=== PATIENT | male | born 1995 | race Caucasian/White ===

== ENCOUNTER 2016-08-08 12:45 | Emergency (ER) | payer OTHER ==
[~2016-08-08] VITALS: Ht 172.7 cm; Wt 79.9 kg
[~2016-08-08 12:45] MED LIST: ATV/1 PO; LISD40CA PO
[2016-08-08 12:49] VITALS: BP 127/72; PULSE 92; TEMP 37; O2SAT 100; Ht 172.7 cm; Wt 79.9 kg
[2016-08-08] MEDS ORDERED: KETOROLAC TROMETHAMINE 30 MG/ML VIAL IV STA (13:04)
[2016-08-08] MEDS ORDERED: SODIUM CHLORIDE 0.9% 1000ML 1,000 ML IV STA (13:04)
[2016-08-08] MEDS ORDERED: AMPH10CA3 PO (13:11)
[2016-08-08] MEDS ORDERED: DEXAMETHASONE SOD INJ 10 MG/ML VIAL IV ONE (13:15)
[2016-08-08 13:38] LABS: BASO % 0.3 %; BASO ABS # 0.02 K/uL (0-0.2); COMPLETE YES; EOS % 0.8 %; HEMATOCRIT 41.9 % (42-52); IG% 0.1 %; LYMPH % 12.9 %; LYMPH ABS # 0.98 K/uL (1.2-3.4); MEAN PLATELET VOLUME 10.4 fL (7.4-10.4); MONO % 6.9 %; PLATELET COUNT 133 K/uL (130-400); RED BLOOD COUNT 4.87 M/uL (4.7-6.1); WHITE BLOOD COUNT 7.57 K/uL (4.8-10.8)
[2016-08-08] MEDS ORDERED: AMPICILLIN/SULBACTAM SOD INJ 3,000 MG in SODIUM CHLORIDE 0.9% 100ML 100 ML IV ONE (13:45)
[2016-08-08 13:59] LABS: BUN/CREATININE RATIO 8.8 (10-20); CALCIUM 8.8 mg/dl (8.5-10.1); CREATININE 1.1 mg/dl (0.60-1.40); POTASSIUM 3.9 mmol/L (3.5-5.1)
--- NOTE | 2016-08-08 14:05 | EMERGENCY ROOM VISIT NOTE ---
ED Visit Note First contact with patient: 12:58 The patient was seen and examined with Laura Locke PA-C. I agree with the history, physical and findings. Please see the note for disposition and details.
--- NOTE | 2016-08-08 14:15 | EMERGENCY ROOM VISIT NOTE ---
History First contact with patient: 12:58 Chief Complaint: FLU LIKE SX Stated Complaint: SWOLLEN GLANDS History of Present Illness The patient is a 20 year old male who presents to the Emergency Room with complaints of sore throat for the past 4 days. The patient also states that he has had a headache and low-grade fever although he does not have a thermometer to take check his temperature. He also has felt slightly achy. The patient states it hurts to open his mouth. He went to urgent care the last 2 days for his symptoms. He had multiple strep test which were all negative. The patient states he can barely swallow anything at this point. He also states he has a very large swollen lymph node on the left side. He has had mono in the past. He is a college student. Review of Systems 10 system review was performed and was negative unless stated otherwise history of present illness. Past Medical/Surgical History Medical Problems: (1) No pertinent past medical history Family History Patient reports no known family medical history. Social History Smoking Status: Never Smoker Alcohol Use: occasionally Drug Use: none Marital Status: single Housing Status: lives with roommate Occupation Status: [employer] student Current/Historical Medications Scheduled Amphetamine-Dextroamphetamine 10MG (Adderall Xr 10MG), 10 MG PO DAILY Scheduled PRN Lorazepam (Ativan), 1 MG PO UD PRN for Anxiety Allergies Coded Allergies: No Known Allergies (Unverified , 08/08/16) Physical Exam Vital Signs Date Time Temp Pulse Resp B/P Pulse Ox O2 Delivery O2 Flow Rate FiO2 08/08/16 12:49 37.0 92 18 127/72 100 Room Air Physical Exam PHYSICAL EXAM: Vital Signs were reviewed: Temperature 37.0, blood pressure 127/ 72, pulse 92, respiratory rate 18 Reviewed Nurse's notes and agree. Oxygen saturation is 100 % on room air which is normal . GENERAL: 20-year-old male appears uncomfortable due to his sore throat. MENTAL STATUS: Alert, oriented, coherent. EARS: Right canal with some cerumen unable to visualize TM. Left TM with good light reflex. NOSE: Nasal mucosa with moderate erythema engorgement. PHARYNX: Diffuse erythema, left tonsil with edema along with the soft palate on the left side consistent with peritonsillar abscess. No visible drainage is noted. Airway is adequate.. Airway is adequate. NECK: Supple, left anterior cervical lymphadenopathy is noted which is tender to palpation. No posterior nodes noted LUNGS: Clear to auscultation without wheezes rales or rhonchi. CARDIAC: Regular rate and rhythm without murmur. SKIN: No rashes noted. Medical Decision & Procedures Laboratory Results 08/08/16 13:29 Red Blood Count 4.87, Mean Corpuscular Volume 86.0, Mean Corpuscular Hemoglobin 31.0, Mean Corpuscular Hemoglobin Concent 36.0, Mean Platelet Volume 10.4, Neutrophils (%) (Auto) 79.0, Lymphocytes (%) (Auto) 12.9, Monocytes (%) (Auto) 6.9, Eosinophils (%) (Auto) 0.8, Basophils (%) (Auto) 0.3, Neutrophils # (Auto) 5.98, Lymphocytes # (Auto) 0.98, Monocytes # (Auto) 0.52, Eosinophils # (Auto) 0.06, Basophils # (Auto) 0.02 08/08/16 13:29 Test 08/08/16 13:29 White Blood Count 7.57 K/uL (4.8-10.8) Red Blood Count 4.87 M/uL (4.7-6.1) Hemoglobin 15.1 g/dL (14.0-18.0) Hematocrit 41.9 % (42-52) Mean Corpuscular Volume 86.0 fL (80-100) Mean Corpuscular Hemoglobin 31.0 pg (25-34) Mean Corpuscular Hemoglobin Concent 36.0 g/dl (32-36) Platelet Count 133 K/uL (130-400) Mean Platelet Volume 10.4 fL (7.4-10.4) Neutrophils (%) (Auto) 79.0 % Lymphocytes (%) (Auto) 12.9 % Monocytes (%) (Auto) 6.9 % Eosinophils (%) (Auto) 0.8 % Basophils (%) (Auto) 0.3 % Neutrophils # (Auto) 5.98 K/uL (1.4-6.5) Lymphocytes # (Auto) 0.98 K/uL (1.2-3.4) Monocytes # (Auto) 0.52 K/uL (0.11-0.59) Eosinophils # (Auto) 0.06 K/uL (0-0.5) Basophils # (Auto) 0.02 K/uL (0-0.2) RDW Standard Deviation 40.8 fL (36.4-46.3) RDW Coefficient of Variation 12.9 % (11.5-14.5) Immature Granulocyte % (Auto) 0.1 % Immature Granulocyte # (Auto) 0.01 K/uL (0.00-0.02) Anion Gap 8.0 mmol/L (3-11) Est Creatinine Clear Calc Drug Dose 101.9 ml/min Estimated GFR () 109.9 Estimated GFR (Non- 94.8 BUN/Creatinine Ratio 8.8 (10-20) Calcium Level 8.8 mg/dl (8.5-10.1) Medications Administered Medications (Trade) Dose Ordered Sig/Zoran Route Start Time Stop Time Status Last Admin Dose Admin Sodium Chloride (Nss 1000ml) 1,000 ml @ 999 mls/hr Q1H1M STAT IV 08/08/16 13:04 08/08/16 14:04 DC 08/08/16 13:04 999 MLS/HR Dexamethasone Sodium Phosphate (Decadron Inj) 10 mg NOW ONCE IV 08/08/16 13:15 08/08/16 13:16 DC 08/08/16 13:35 10 MG Ketorolac Tromethamine (Toradol Inj) 30 mg NOW STAT IV 08/08/16 13:04 08/08/16 13:06 DC 08/08/16 13:36 30 MG ED Course The patient was evaluated. IV access was obtained. The patient was given 1 L normal saline wide-open. The patient was given Toradol 30 mg IV and Decadron 10 mg IV. CBC and differential and renal profile was ordered. The patient's case was discussed withDr. Reyes independently evaluated the patient and agrees with treatment plan. Labs are reviewed and were unremarkable. White count was normal. Dr. Davis's office was consulted and stated that they would see the patient immediately in the office. The patient was informed with treatment plan and was in agreement. The patient was discharged in stable condition. Medical Decision Differential diagnosis include strep pharyngitis, mononucleosis, peritonsillar abscess Impression Primary Impression: Peritonsillar abscess Departure Information Dispostion Home / Self-Care Condition GOOD Referrals [facility] (PCP) Ti Davis M.D. Forms HOME CARE DOCUMENTATION FORM, IMPORTANT VISIT INFORMATION Patient Instructions ED Abscess Peritonsillar, My [facility] Additional Instructions Go directly to Dr. Puckett's office for further treatment and definitive care. Make sure you have inform Dr. Puckett that you DID NOT receive antibiotics while in the emergency room.
== END 2016-08-08 14:39 | disposition home or self-care (01) ==
LOC: C.ED 12:47 → C.EDB 14:39
DX: J36 Peritonsillar abscess (principal); Z79.899 Other long term (current) drug therapy